=== PATIENT | male | born 1980 | race Caucasian/White ===

== ENCOUNTER 2024-03-27 21:18 | Emergency (ER) | payer OTHER, SELFPAY ==
[2024-03-27 21:20] VITALS: BP 164/114
[2024-03-27 22:15] VITALS: BP 145/107
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
[2024-03-28 04:04] VITALS: BP 142/98
== END 2024-03-28 04:09 | disposition home or self-care (01) ==
LOC: EMR 21:18
PROVIDERS: EMERGENCY PHYSICIAN Emergency Medicine
DX: Z13.30 Encounter for screening examination for mental health and behavioral disorders, unspecified (principal); Z59.02 Unsheltered homelessness; K21.9 Gastro-esophageal reflux disease without esophagitis; I10 Essential (primary) hypertension; F41.9 Anxiety disorder, unspecified; F17.200 Nicotine dependence, unspecified, uncomplicated; Y92.481 Parking lot as the place of occurrence of the external cause
CPT/HCPCS: 99285

== ENCOUNTER 2024-05-08 15:20 | Inpatient (IN) | payer OTHER, SELFPAY ==
[2024-05-08] VITALS (7 sets, daily range): BP systolic 104–144; BP diastolic 70–87; BMI 27.2
[2024-05-08 12:37] LABS: Glucose - Point of Care 297 mg/dl (70-99)
--- NOTE | 2024-05-08 12:59 | ED.GENMED ---
History of Present Illness
General
Chief Complaint: Cold/Flu/URI Symptoms
Source: patient
Exam Limitations: none
Time Seen by Provider: 05/08/24 12:57
Nursing documentation reviewed up to this point in time: agreed with
History of Present Illness
History of Present Illness:
43-year-old male presents emergency department due to coughing up dark-colored sputum, sick with cough and congestion for the past week, and diaphoretic in triage. He also reports that he has had a rash that this began yesterday. He has not been
taking any of his medications as he is unable to afford them. He is on insulin.
Past History
Past History
ED Past Medical History: GERD, HTN (untreated ), Psychiatric (anxiety/depression) and Other (pancreatitis)
ED Past Surgical History: Orthopedic
Social History
Tobacco: Smoker
Alcohol: Occasional
Drug: Former user
Personal:
Living: with family
Employment: Employed
Family History
Family History: Other (nc)
Review of Systems
Review of Systems
Allergies reviewed?: Yes
All Other Systems: Not applicable
Constitutional: Reports fever and chills
EENT: Reports no symptoms
Respiratory: Reports cough
Cardiac: Reports no symptoms
ABD/GI: Reports no symptoms
: Reports no symptoms
Musculoskeletal: Reports no symptoms
Skin: Reports no symptoms
Neurological: Reports no symptoms
Endocrine: Reports no symptoms
Hematologic/Lymphatic: Reports no symptoms
Psychiatric: Reports no symptoms
Phy Exam
Physical Exam
Physical Exam:
Physical Exam
General: Afebrile, diaphoretic
Neck: supple. no meningeal signs. normal posterior pharynx
Heart: s1/s2 tachycardia, no murmur. equal radial
pulses.
HEENT: Pupils equal round reactive to light, EOMI
Lungs: no acute respiratory distress. Rhonchi at bases bilaterally
Abdomen: normal bowel sounds. not tender. no CVAT
Neuro: alert and oriented. no focal neurological deficits cranial nerves II through XII intact
Skin: Macular rash on upper body, multiple sores on right arm
Psychiatric: well kept. interactive and cooperative
Extremities: no edema. no calf tenderness. negative homans. good distal pulses
Course
Orders/Labs/Results
Orders:
Orders
05/08/24 Lunch
2000 calorie (17 carb) Diabetic
At Your Request: Full Participation
05/08/24 12:59
IV Insert/Care/Rem.- Treatment PRN
0.9% Sodium Chloride 1000 ml [Nss] 1,000 ml IV BOLUS
05/08/24 13:03
B-Hydroxybutyrate Urgent
COVID-19 Antigen Urgent
Source: Nasal Swab
Complete Blood Count/With Diff Urgent
Comprehensive Metabolic Panel Urgent
Lactic Acid Q4H
Comment: CANCEL 2nd LACTIC ACID IF 1st LACTIC ACID IS LESS THAN 2
Influenza A+B Rapid Molecular Urgent
SATISH Source: Nasal Swab
Specimen Description:
05/08/24 13:17
CR Chest Portable - 1 View Urgent
Comment:
Reason For Exam: productive cough, b'l rhonchi, fever
Reason Study Needs to be Portable: Unable to Transport
05/08/24 13:[address] Non Medication Order As Directed
Physician Order: oropharyngeal swab, urine, for Rubeola testing
Above order entered?: Yes
05/08/24 13:52
Add On - Microbiology Urgent
Tests Added?: viral respiratory panel-requested by RASHMI
05/08/24 14:08
0.9% Sodium Chloride 1000 ml [Nss] 1,000 ml IV BOLUS
05/08/24 14:15
Respiratory Viral Panel-PCR Urgent
SATISH Source: CLINICAL TECHNICIAN
Specimen Description:
05/08/24 14:18
Rubeola Virus IgM (Measles) [S] Urgent
05/08/24 14:39
Azithromycin 500 mg/250 ml [Zithromax Infusion] 500 mg in 250 ml IV NOW
CefTRIAXone [Rocephin] 2,000 mg IV NOW STA
05/08/24 14:42
INFECTIOUS DISEASE CONSULT Routine
Consulting Provider: Steffen Rosado
Was physician already notified: Yes
05/08/24 15:05
Admit/Transfer Patient As Directed
Co-Sign Provider:
Level of Care: Inpatient admission
Assign to:: Telemetry
Physician / Group: Tanmay/hospitalist
Diagnosis: sepsis
Reason for Telemetry: Arrhythmia
Date to Stop Telemetry: 05/11/24
Time to Stop Telemetry: 11:00
Reason for Hospitalization: sepsis
Expected length of stay greater than two midnights?: Yes
ELOS- Estimated Length of Stay in days: 3
I certify the patient meets the requirements for IP care: Yes
PRN Pain Medication Management As Directed
May give lesser potent ordered pain med per pt: Yes
preference::
Protocol:: Medication orders for pain may be administered in a
manner that supports deferring to patient preference
when the pt is:
- Requesting an ordered lesser potent pain medication.
Least to most potent pain medications are defined
as: acetaminophen < NSAID < tramadol < opioids
(morphine, oxycodone, hydromorphone).
- Requesting a lesser dose of the same medication IF
ORDERED.
- Requesting a less intrusive route of administration
if both routes are prescribed by the provider (PO <
IV).
05/08/24 15:09
Code Status As Directed
Resuscitation Status: Full Code
05/08/24 15:10
Vancomycin [Vancocin] 2,000 mg 0.9% Sodium Chloride 500 ml [Nss] 500 ml IV NOW
05/08/24 15:42
HIV 4th Generation [HIV Combo] Routine
Procalcitonin Urgent
PCT Algorithmm Indication: Respiratory
Urinalysis Reflex To Culture Urgent
Date Specimen was Collected: 05/08/24
Time Specimen was Collected: 13:36
05/08/24 16:34
Blood Culture Q30M
SATISH Source: Blood/Venous
Specimen Description:
Comment: IF NOT OBTAINED IN ED
0.9% Sodium Chloride 1000 ml [Nss] 1,000 ml IV 100 mls/hr
Dextrose 50%-Water [Dextrose 50% Syringe] 12.5 grams IV [id number] PRN
Glucagon [GlucaGen] 1 mg IM PRN PRN
Insulin Aspart Corrective Low [Novolog Flexpen-Low Resistance] See Protocol SC AC
Insulin Aspart Pen [Novolog Flexpen] 5 units SC AC
Nicotine [Nicoderm Transdermal] 14 mg TRANSDERM DAILY
Ondansetron Injectable [Zofran] 4 mg IV Q6HPRN PRN
05/08/24 16:34
WOUND/OSTOMY CONSULT Routine
Reason for Consult: skin rash
Activity As Directed
Activity Level: As Tolerated
Bedside Glucose Monitoring As Directed
Frequency: AC&HS
Additional Instructions:: Change to q6h if pt on TPN, tube feeding or not eating
Intake/ Output As Directed
Frequency: Per unit guidelines
Vital Signs As Directed
Frequency: Per unit guidelines
DX Deep Vein Thrombosis Video Routine
05/08/24 17:00
Lactic Acid Q4H
Comment: CANCEL 2nd LACTIC ACID IF 1st LACTIC ACID IS LESS THAN 2
05/08/24 17:04
Blood Culture Q30M
SATISH Source: Blood/Venous
Specimen Description:
Comment: IF NOT OBTAINED IN ED
05/08/24 17:39
Urinalysis Reflex To Culture Urgent
Date Specimen was Collected: 05/08/24
Time Specimen was Collected: 17:24
Urine Drug Abuse Screen Routine
Date Specimen was Collected: 05/08/24
Time Specimen was Collected: 17:24
MRSA Screen Routine
SATISH Source: Nose
Specimen Description:
05/08/24 18:00
Enoxaparin Sodium [Lovenox] 40 mg SC QPM
05/08/24 20:00
CefTRIAXone [Rocephin] 1,000 mg IV Q24H
05/08/24 22:00
Insulin Glargine Lantus [Lantus] 10 units Subcutaneous Insulin Syringe [Syringe-Insulin] 0 unit SC HS
05/09/24 06:00
Basic Metabolic Panel IN AM
Complete Blood Count/With Diff IN AM
Glycohemoglobin (HgbA1c) IN AM
Lactic Acid IN AM
Magnesium IN AM
05/09/24 16:00
Azithromycin 500 mg/250 ml [Zithromax Infusion] 500 mg in 250 ml IV Q24H
05/10/24 06:00
Basic Metabolic Panel IN AM
Complete Blood Count/With Diff IN AM
Lactic Acid IN AM
05/11/24 11:00
DC Protocol for Telemetry ONCE
Abnormal Lab Results
05/08/24 05/08/24
12:36 13:03
WBC 18.2 H 10^3/uL
(4.8-10.8)
Abs Immat Gran (auto) 0.2 H 10^3/uL
(0-0.05)
Absolute Neuts (auto) 14.5 H 10^3/uL
(1.4-6.5)
Absolute Monos (auto) 1.4 H 10^3/uL
(0.1-0.6)
Immature Gran % 0.9 H %
(0-0.5)
Neutrophils % 79.4 H %
(42.2-75.2)
Lymphocytes % 11.3 L %
(20.5-51.1)
Sodium 131 L mmol/L
(135-145)
Chloride 84 L mmol/L
(98-107)
Glucose 373 H mg/dl
(70-99)
Lactic Acid 2.9 H mmol/L
(0.7-2.0)
Alkaline Phosphatase 138 H U/L
(38-126)
B-Hydroxybutyrate 4.43 H mmol/L
(0.02-0.27)
POC Glucose 297 H mg/dl
(70-99)
05/08/24 13:03
05/08/24 13:03
Vital Signs
Initial and Last Documented VS:
Initial Vital Signs
Temp Pulse Resp BP Pulse Ox
98.2 F 126 18 104/70 98
05/08/24 12:31 05/08/24 12:31 05/08/24 12:31 05/08/24 12:31 05/08/24 12:31
Last Documented Vital Signs
Temp Pulse Resp BP Pulse Ox
98.4 F 128 16 142/84 96
05/08/24 18:58 05/08/24 18:58 05/08/24 18:58 05/08/24 18:58 05/08/24 18:58
MDM/Problems Addressed
Differential Diagnosis Includes:
Measles, pneumonia, DKA
MDM/Problems Addressed:
43-year-old male with bilateral pneumonia, some concern for measles, though likely other infectious cause. Department health contacted, infection control contacted. IV fluids, Rocephin, azithromycin and given. Patient has multiple wounds that are
concerning for MRSA.
Chronic conditions affecting care: DM and HTN
Acute Exacerbation and/or Progression of Chronic Illness: DM and HTN
*Radiology
Radiology exam reviewed: preliminary read by ED provider (Chest x-ray bilateral patchy infiltrates)
*Pulse Oximetry
Patient hypoxic: no
*Publication Distributor Interpretation
Rate: tachycardiac
Interpretation: abnormal
Heart Rate: 128
Rhythm: sinus tachycardia
*Critical Care Note
Total Time (30-74mins, 75-104mins- exclusive of procedures): 32
comment:
Critical care statement: A total of 30 minutes of critical care time was provided for this patient. This includes management of unstable vital signs, evaluation of the patient at bedside, reviewing the patient's pertinent medical records, discussion
with consultants, review of old EKGs and review of pertinent medical records. This time with separate from time utilized to perform the aforementioned documented procedures
Data Reviewed
Review of Other/Old Records Reveals: Labs (Prior WBC 6.8 12/06/2021)
Patient Management
Social determinants of health affecting care: Living situation, Substance abuse, Financial situation and Poor outpatient follow-up
Discussion with other providers: Hospitalist and House Principal (Infection control, and department of health Dr. Tovar)
Escalation/DeEscalation of care consider admission/obs:
Admit indicated
ED Attending Note
-
Portions of this chart may have been created with voice recognition software.� Occasional wrong word or��sound alike� substitutions may have occurred due to the inherent limitations of voice recognition software.
Discharge Plan
Departure
Patient Disposition: Admit
Date of Disposition: 05/08/24
Time of Disposition: 15:05
Admit to: Telemetry
Presentation/result/management discussed w/ accepting MD/DO: Hospitalist
Patient with high blood pressure during this ER visit?: No
Condition: Fair
Discharge Problem:
Pneumonia, Acute hyperglycemia
Interventions
Interventions:
*Risk Screen - Suicide Last Done: 05/08/24 12:32
*General Assessment Last Done: 05/08/24 12:32
*Neglect/Abuse Screening Last Done: 05/08/24 12:32
*ED- Fall Risk Assessment Last Done: 05/08/24 16:27
*ED COVID-19 Vaccine History Last Done: 05/08/24 16:27
*Nursing Disposition Last Done: 05/08/24 16:27
ED- Pulmonary Assessment Last Done: 05/08/24 14:42
Discharge Date and Time
Discharge Date/Time: 05/08/24 16:28
[2024-05-08 13:30] LABS: % Basophils 0.5 % (0-2); % Eosinophils 0.1 % (0-6); % Immature Granulocytes 0.9 % (0-0.5); % Lymphocytes 11.3 % (20.5-51.1); % Monocytes 7.8 % (1.7-9.3); % Neutrophils 79.4 % (42.2-75.2); Absolute Basophils 0.1 10^3/uL (0-0.2); Absolute Immature Granulocytes 0.2 10^3/uL (0-0.05); Absolute Lymphocytes 2.1 10^3/uL (1.2-3.4); Absolute Monocytes 1.4 10^3/uL (0.1-0.6); Absolute Neutrophils 14.5 10^3/uL (1.4-6.5); Hematocrit 41.4 % (39.0-52.0); Hemoglobin 14.7 g/dL (13.0-18.0); Mean Corp Hgb Conc. 35.5 g/dL (33.0-37.0); Mean Corpuscular Hgb 30.5 pg (27.0-31.0); Mean Corpuscular Volume 85.9 fL (80.0-94.0); Mean Platelet Volume 9.4 fL (7.4-10.4); Nucleated Red Blood Cells % 0 % (-); Platelet Count 243 10^3/uL (130-400); Red Blood Cell Count 4.82 10^6/uL (4.70-6.10); Red Cell Dist. Width 11.9 % (11.5-14.5); White Blood Cell Count 18.2 10^3/uL (4.8-10.8)
[2024-05-08 13:44] LABS: ALT (SGPT) < 10 U/L (0-50); AST (SGOT) 18 U/L (17-59); Albumin 3.7 g/dl (3.5-5.0); Alkaline Phosphatase 138 U/L (38-126); Blood Urea Nitrogen 12 mg/dl (9-20); Calcium 9.3 mg/dl (8.4-10.2); Carbon Dioxide 30 mmol/L (22-30); Chloride 84 mmol/L (98-107); Glucose 373 mg/dl (70-99); Potassium 3.7 mmol/L (3.5-5.1); Sodium 131 mmol/L (135-145); Total Protein 6.7 g/dl (6.3-8.2); eGFR > 60.00
[2024-05-08 13:45] LABS: Lactic Acid 2.9 mmol/L (0.7-2.0)
[2024-05-08 13:51] LABS: B-Hydroxybutyrate 4.43 mmol/L (0.02-0.27); COVID-19 Antigen Negative (Negative)
[2024-05-08] MEDS: NSS 1000 IV ×3 (14:06→16:56)
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
--- NOTE | 2024-05-08 15:03 | PHANOTE ---
Addendum entered by Andrei Flaherty 05/08/24 18:49:
Interviewed patient over phone, he was able to confirm the few medications that he had been taking.
Addendum entered by Jayda Bernard 05/08/24 15:07:
no records of clonidine 0.2 tid or olanzapine being filled. no [facility] records for lorazepam
Original Note:
med rec note- patient non complant with medication, ecw from 09/14/23 no meds listed expect NovoLog 10 ac and Semglee yfgn 24 daily, [facility] records 08/31/23 buprenorphine/naloxone film 8/2mg daily #30 nothing newer. added new medication from 04/14/24
to med rec list
[2024-05-08] MEDS: ZITHROMAX INFUSION 250 IV (15:34)
[2024-05-08 15:52] LABS: Urine Albumin Negative (Neg - Trace); Urine Bilirubin Negative (Negative); Urine Character Clear (Clear); Urine Glucose 4+ (Negative); Urine Ketone 3+ (Negative); Urine Leukocyte Negative (Negative); Urine Nitrite Negative (Negative); Urine Occult Blood Negative (Negative); Urine Urobilinogen Negative (Neg - 1+)
[2024-05-08 15:56] LABS: Urine Color Straw
[2024-05-08 16:21] LABS: Procalcitonin 0.18 ng/ml (0.0-0.25)
--- NOTE | 2024-05-08 16:30 | TRANSFER ---
Received patient from ER via stretcher. Patient ambulated self to bed. Admission done over the phone. patient AAOx3. VSS. orders acknowledged. Airborne [id number] applied. Patient comfortably resting in bed
[2024-05-08] MEDS: VANCOCIN 540 MG IV (16:56)
[2024-05-08] MEDS: NICODERM TRANSDERMAL 14 MG TRANSDERM (16:58)
[2024-05-08 17:26] LABS: Glucose - Point of Care 246 mg/dl (70-99)
[2024-05-08] MEDS: NOVOLOG FLEXPEN 5 UNITS SC (17:26)
[2024-05-08] MEDS: LOVENOX 40 MG SC (17:26)
[2024-05-08] MEDS: NOVOLOG FLEXPEN-LOW RESISTANCE 2 UNITS SC (17:27)
--- NOTE | 2024-05-08 17:54 | CON.ID ---
Consultation
-
Date/Time Consultation Requested: 05/08/2024 1442
Date/Time Consultation Performed: 05/08/2024 1700
Requesting Provider: Dr. Donato
Performing Provider: Dr. Rosado
Reason for Consultation: Fever, cough, rash
Chief Complaint / Past History
History of Present Illness
Cesar Chance is a 43-year-old man being evaluated at the request of Dr. Donato in regards to fever, cough and rash. History is obtained from chart review, along with patient interview. Additional history was obtained from the patient's mother who was
outside the room.
The patient has a significant past medical history of diabetes, along with reported alcohol use. The patient's mother notes that he has been somewhat noncompliant with his medical treatments, and has been off of insulin. The patient reports that
he began with chills and upper respiratory tract symptomatology approximately 1 week ago. He complained of cough, nasal congestion, along with sore throat. He notes that he was feeling better approximately 3 days ago, but yesterday he began to
feel much worse with sweats, productive sputum of dark zhang and green sputum. He admitted to chills. Additionally, he began with a rash yesterday which was noted on his trunk. According to his mom he felt so ill that he called her to bring him
into the hospital for further evaluation.
Here, he was noted to have a rash and ER workup revealed a marked leukocytosis. He is currently in airborne precautions for possible measles. In regards to this his mother reports that he received all of his appropriate child vaccinations.
He has no sick contacts. 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 He has had no recent travel outside of the area.
Past History
Additional Past Medical History:
Diabetes mellitus
GERD
HTN
Anxiety/depression
Solitary kidney
Additional Past Surgical History:
Left knee surgery
Allergy History:
No Known Allergies Allergy (Verified 03/27/24 21:19)
Medications Reviewed: Yes
Current Antibiotics:
Ceftriaxone
Azithromycin
Social History
Tobacco: Smoker
Alcohol: Occasional
Drug: None
Employment: Employed
Family History
Family History: Not Pertinent
Review of Systems
Vital Signs
Temp Pulse Resp BP Pulse Ox
98.7 F 109 18 116/77 97
05/08/24 16:37 05/08/24 16:37 05/08/24 16:37 05/08/24 16:37 05/08/24 16:37
Physical Exam
Physical Exam
Constitutional: Comfortable, Acutely Ill and Non-toxic
Eyes: Pupils Equal, Pupils Round, No Conjunctival Hemorrhage and Sclera Anicteric
Oral: No Thrush, No Ulcers and Other (No noted [place] spots)
Cardiovascular: Regular Rate and S1/S2; Negative S3/S4
Pulmonary: Coarse and Non Labored; Negative Wheezes or Rales
Gastrointestinal: Soft, Non Tender, Non Distended, Normal Bowel Sounds, No Rebound and No Guarding
Extremities: Negative Edema, Cyanosis or Erythema
Skin: Warm, Dry and Rash (Faint erythematous rash noted on the upper trunk and back. Appears more diffuse than discrete and macular.)
Lab / Diagnostic Study Results
05/08/24 13:03
05/08/24 13:03
Abs Immat Gran (auto) 0.2 10^3/uL (0-0.05) H 05/08/24 13:03
Absolute Neuts (auto) 14.5 10^3/uL (1.4-6.5) H 05/08/24 13:03
Absolute Lymphs (auto) 2.1 10^3/uL (1.2-3.4) 05/08/24 13:03
Absolute Monos (auto) 1.4 10^3/uL (0.1-0.6) H 05/08/24 13:03
Absolute Basos (auto) 0.1 10^3/uL (0-0.2) 05/08/24 13:03
Immature Gran % 0.9 % (0-0.5) H 05/08/24 13:03
Neutrophils % 79.4 % (42.2-75.2) H 05/08/24 13:03
Lymphocytes % 11.3 % (20.5-51.1) L 05/08/24 13:03
Monocytes % 7.8 % (1.7-9.3) 05/08/24 13:03
Eosinophils % 0.1 % (0-6) 05/08/24 13:03
Basophils % 0.5 % (0-2) 05/08/24 13:03
Lactic Acid 2.9 mmol/L (0.7-2.0) H 05/08/24 13:03
Procalcitonin 0.18 ng/ml (0.0-0.25) 05/08/24 15:42
Microbiology Results
Micro:
05/08/24 17:39 MRSA Screen - Pending
Nose
05/08/24 14:15 Influenza Type A (PCR) - Final
Nasalpharynx Not Detected
Influenza Type A (H1) (PCR) - Final
Not Detected
Influenza Type A (H3) (PCR) - Final
Not Detected
Influenza Type B (PCR) - Final
Not Detected
Resp Syncytial Virus Type A (PCR) - Final
Not Detected
Resp Syncytial Virus Type B (PCR) - Final
Not Detected
Adenovirus DNA (PCR) - Final
Not Detected
Human Metapneumovirus (PCR) - Final
Not Detected
Parainfluenza Virus Type 1 (PCR) - Final
Not Detected
Parainfluenza Virus Type 2 (PCR) - Final
Not Detected
Parainfluenza Virus Type 3 (PCR) - Final
Not Detected
Parainfluenza Virus Type 4 - Final
Not Detected
Rhinovirus (PCR) - Final
Not Detected
05/08/24 13:03 Influenza Types A & B (THEE) - Final
Nasal Swab Negative for Influenza A & B, NAAT
Negative results must be combined with clinical observations
and patient history.
Nucleic Acid Amplification test (NAAT)performed on the
[employer] platform.
Imaging:
05/08/2024 CXR (portable): Questionable subtle patchy infiltrate versus artifactual regions of subtle increased attenuation. No focal dense consolidation. No pneumothorax or pleural effusion. Please see full dictation for additional detail.
Assessment / Plan
Fever
Leukocytosis
Rash
Upper respiratory tract infection (bronchitis +/- early PNA)
Diabetes
GERD
Hx HTN
Anxiety/depression
Recommendations:
Given rash, the diagnosis of measles has been entertained, although given history, the diagnosis would be somewhat less likely.
Viral respiratory panel is negative. Will order sputum culture. [place]ube[place] PCR will be sent in AM to the [facility].
Check Legionella and pneumococcal urinary antigen.
Continue with ceftriaxone and Azithromycin for the present.
Monitor white count and temperature curve.
HIV antibody has been ordered; will await results.
Tight glucose control.
Monitor white count and temperature curve.
Further recommendations as additional data is returned.
[2024-05-08] MEDS: CITROMA 300 ML PO (17:56)
[2024-05-08 18:06] LABS: Urine Albumin Negative (Neg - Trace); Urine Bilirubin Negative (Negative); Urine Character Clear (Clear); Urine Color Yellow; Urine Glucose 4+ (Negative); Urine Ketone 3+ (Negative); Urine Leukocyte Negative (Negative); Urine Nitrite Negative (Negative); Urine Occult Blood Negative (Negative); Urine Specific Gravity 1.015 (<1.030); Urine Urobilinogen Negative (Neg - 1+)
[2024-05-08 18:36] LABS: Amphetamines Positive (Negative); Barbiturates Negative (Negative); Benzodiazepines Negative (Negative); Buprenorphine Negative (Negative); Cocaine Negative (Negative); Marijuana Positive (Negative); Methadone Negative (Negative); Methamphetamines Positive (Negative); Opiates Negative (Negative); Phencyclidine Negative (Negative); Tricyclic Antidepressants Negative (Negative)
[2024-05-08 18:59] LABS: Fentanyl, Urine Positive (Negative)
[2024-05-08] MEDS: MORPHINE SULFATE 2 MG IV (19:46)
[2024-05-08] MEDS: SENOKOT-S 1 TABLET PO (19:46)
[2024-05-08] MEDS: ROCEPHIN 1000 MG IV (20:47)
[2024-05-08] MEDS: STERILE WATER FOR INJECTION 10 ML IV (20:48)
[2024-05-08 21:57] LABS: Glucose - Point of Care 264 mg/dl (70-99)
[2024-05-08] MEDS: LANTUS 0.1 UNITS SC (22:24)
[2024-05-08] MEDS: DESYREL 100 MG PO (22:24)
[2024-05-09 03:00] VITALS: BP 128/83
[2024-05-09 06:00] VITALS: BMI 26.4
[2024-05-09 06:50] LABS: % Basophils 0.5 % (0-2); % Eosinophils 0.7 % (0-6); % Lymphocytes 19.1 % (20.5-51.1); % Monocytes 10.6 % (1.7-9.3); % Neutrophils 68.1 % (42.2-75.2); Absolute Basophils 0.1 10^3/uL (0-0.2); Absolute Eosinophils 0.1 10^3/uL (0-0.7); Absolute Immature Granulocytes 0.1 10^3/uL (0-0.05); Absolute Lymphocytes 1.8 10^3/uL (1.2-3.4); Absolute Neutrophils 6.5 10^3/uL (1.4-6.5); Hematocrit 41.8 % (39.0-52.0); Hemoglobin 14.7 g/dL (13.0-18.0); Mean Corp Hgb Conc. 35.2 g/dL (33.0-37.0); Mean Corpuscular Hgb 30.6 pg (27.0-31.0); Mean Corpuscular Volume 86.9 fL (80.0-94.0); Mean Platelet Volume 8.7 fL (7.4-10.4); Nucleated Red Blood Cells % 0 % (-); Platelet Count 220 10^3/uL (130-400); Red Blood Cell Count 4.81 10^6/uL (4.70-6.10); Red Cell Dist. Width 12.1 % (11.5-14.5); White Blood Cell Count 9.6 10^3/uL (4.8-10.8)
[2024-05-09 07:05] VITALS: BP 143/104
[2024-05-09 07:15] LABS: Blood Urea Nitrogen 7 mg/dl (9-20); Calcium 9.3 mg/dl (8.4-10.2); Carbon Dioxide 26 mmol/L (22-30); Chloride 94 mmol/L (98-107); Estimated Creatinine Clearance > 125 ml/min; Glucose 238 mg/dl (70-99); Magnesium 1.7 mg/dl (1.6-2.3); Sodium 137 mmol/L (135-145); eGFR > 60.00
[2024-05-09] MEDS: SENOKOT-S 1 TABLET PO ×2 (08:09→19:50)
[2024-05-09] MEDS: NICODERM TRANSDERMAL 14 MG TRANSDERM (08:09)
[2024-05-09 08:10] LABS: Glucose - Point of Care 221 mg/dl (70-99)
[2024-05-09] MEDS: MIRALAX PO (08:13)
[2024-05-09] MEDS: NOVOLOG FLEXPEN-MODERATE RESISTANCE 3 UNITS SC (08:14)
[2024-05-09] MEDS: NOVOLOG FLEXPEN 5 UNITS SC ×4 (08:14→22:21)
[2024-05-09] MEDS: NSS IV (08:17)
[2024-05-09 09:17] LABS: Glycohemoglobin (HgbA1c) 10.4 % (4.0-5.6)
--- NOTE | 2024-05-09 09:32 | W.PN.HOSP.TC ---
Addendum entered and electronically signed by Kenyetta Donato MD 05/09/24 10:04:
Increase Lantus to 15 units HS
Original Note:
Today's Communication/Plan
-
see A/P
Assessment / Plan
Assessment / Plan
HPI: 43-year-old male PMH GERD, HTN (untreated), anxiety/depression, IDDM; p/w productive coughing (dark-colored sputum), congestion, oral ulcers, diaphoresis.
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
Of note, he is not taking any medication (including insulin) as he is not able to afford them.
A/P:
# sepsis POA, unclear cause
# Upper chest skin rash, oral ulcers, nasal congestion
COVID/flu negative
procalcitonin 0.18,
CXR: Questionable subtle patchy infiltrates versus artifact. No focal dense consolidation. No pneumothorax or pleural effusion. No evidence of congestive heart failure.
check MRSA screen
Follow blood cultures
Urine Legionella/Strep Ag negative
Measles IgM sent from ED, follow-up
check HIV for completeness sake
Cont empiric ceftriaxone and azithromycin
Observe off additional IVF
ID on board
Wound care consulted
of note, UDS positive for Fentanyl, amphetamine, methamphetamine, Marijuana
# Mild lactic acidosis present on admission, resolved
# Hyperglycemia
# Insulin-dependent diabetes
Follow A1c
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
Cover with insulin sliding scale
Carb controlled diet
# Constipation
started Senokot-S BID and Miralax daily standing doses
# GERD
# HTN
Start Metoprolol 12.5 BID (in the [facility] 4 dollar plan), adjust dose as needed
# anxiety/depression
# Medication noncompliance due to unable to afford medications per pt
informed about [facility] $4 plan and good Rx
# Nicotine dependence/cigarette smoking
Nicotine patch provided
DVT ppx: Lovenox SQ
FC
DW RN
total time spent 51 min
Anticipated Discharge: 24 - 48 hours
Subjective/Interval History
-
Date of Service: May 09, 2024
Objective Data
-
Labs:
Laboratory Results
05/09/24
06:29
WBC 9.6
Hgb 14.7
Hct 41.8
Plt Count 220
Sodium 137
Potassium 4.0
Chloride 94 L
Carbon Dioxide 26
BUN 7 L
Creatinine 0.6 L
Glucose 238 H
Calcium 9.3
Vital Signs:
Vital Signs
Temp Pulse Resp BP Pulse Ox
36.8 C 107 19 143/104 97
05/09/24 07:05 05/09/24 07:05 05/09/24 07:05 05/09/24 07:05 05/09/24 07:05
I&O
05/08/24 05/09/24 05/10/24
06:59 06:59 06:59
Intake Total 1440 / 1440 900 / 900
Output Total 600 / 600
Balance 840 / 840 900 / 900
Review of Systems
-
All other systems: Reviewed and negative
Physical Exam
-
General: Well Developed, Well Nourished, No Apparent Distress, Comfortable and Conversant; Negative Respiratory Distress
HEENT: Normocephalic, Atraumatic, Nose Appears Normal and Ears Appear Normal; Negative Oxygen
Respiratory: Clear to Auscultation and Non Labored Respirations; Negative Accessory Resp Muscle Use
Cardiac: Regular Rhythm and S1/S2
GI: Soft, Nontender, Nondistended and Normal Bowel Sounds
Skin: Warm, Dry and Rash (see wound care note)
Neuro: Awake, Alert, Oriented and AO x 3
Psych: Calm and Intact Judgement/Insight
Data Reviewed
-
Labs: Labs Reviewed by me
[2024-05-09 10:24] VITALS: BMI 26.4
[2024-05-09 11:05] VITALS: BP 175/109
--- NOTE | 2024-05-09 11:06 | WOUNDNOTE ---
RIGHT 4th FINGER
[2024-05-09] MEDS: LOPRESSOR 12.5 MG PO ×2 (11:07→19:49)
--- NOTE | 2024-05-09 11:07 | WOUNDNOTE ---
[facility] RN NOTE: Reviewed chart and met with patient. Per chart review and TT with Dr. Donato patient has rash and multiple lesions that appear to be chronic. ID also following. No rash noted on chest or back at time of assessment. Patient as wearing
jeans and declined to remove them for skin assessment. Right hand with circular wound with scabbed/necrotic appearance. Patient states he has had wound for a 'few months' and said it started after he picked off some skin. No drainage or odor noted.
Picture also TT to ID. Right 4th finger with abrasion that patient said occurred due to brillo pad. Patient prefers to keep both wounds open to air and declined recommendations for wound dressings. Will sign off.
[2024-05-09 11:09] LABS: Glucose - Point of Care 354 mg/dl (70-99)
[2024-05-09] MEDS: NOVOLOG FLEXPEN-MODERATE RESISTANCE 9 UNITS SC ×2 (13:01→17:04)
[2024-05-09 15:05] VITALS: BP 155/103
[2024-05-09] MEDS: ZITHROMAX INFUSION 250 IV (15:42)
--- NOTE | 2024-05-09 15:53 | PTCARENOTE ---
Infection control cleared patient to come off of airborne precautions. Patients new isolation is now standard.
[2024-05-09 16:03] LABS: HIV Combo Negative (Negative)
[2024-05-09 16:55] LABS: Glucose - Point of Care 356 mg/dl (70-99)
[2024-05-09] MEDS: LOVENOX 40 MG SC (17:04)
--- NOTE | 2024-05-09 17:15 | CM ---
Attempted to speak with patient however he was not available. Called other listed contacts and there were no answers only voice mail. Will attempt again to see patient.
--- NOTE | 2024-05-09 18:02 | W.PN.ID1 ---
Date of Service
Date of Service: May 09, 2024
Today's Communication
Continue abx for today
Assessment / Plan
Fever
Leukocytosis
Rash
Upper respiratory tract infection (bronchitis +/- early PNA)
Diabetes
GERD
Hx HTN
Anxiety/depression
Recommendations:
Department of Health not impressed with clinical presentation. No testing for measles will be performed. Patient now out of isolation.
Viral respiratory panel is negative. Await sputum culture.
Legionella and pneumococcal urinary antigen negative.
Continue with ceftriaxone and Azithromycin for the present.
Monitor white count and temperature curve.
HIV antibody negative. Check Hep C ab
Tight glucose control.
Monitor white count and temperature curve.
Further recommendations as additional data is returned.
Chief Complaint
-: Fever and Other
Subjective / Review of Systems
Patient seen and examined. Reports feeling improved today. Some decrease in overall cough.
Review of Systems: No Fever
Vital Signs / Physical Exam
Vital Signs
Vital Signs
Temp Pulse Resp BP Pulse Ox
99.1 F 105 18 155/103 98
05/09/24 15:05 05/09/24 15:05 05/09/24 15:05 05/09/24 15:05 05/09/24 15:05
Physical Exam
Constitutional: No Acute Distress, Comfortable and Non-toxic
Eyes: Sclera Anicteric
Pulmonary: Non Labored; Negative Wheezes
Gastrointestinal: Soft, Non Distended and Normal Bowel Sounds
Neurological: Awake and Alert
Psychological: Calm
Objective Data
Lab Data
Lab Results
05/09/24 06:29
05/09/24 06:29
Estimated Creat Clear > 125 ml/min 05/09/24 06:29
Lactic Acid Cancelled 05/09/24 06:00
Total Bilirubin 1.0 mg/dl (0.2-1.3) 05/08/24 13:03
AST 18 U/L (17-59) 05/08/24 13:03
ALT < 10 U/L (0-50) 05/08/24 13:03
Alkaline Phosphatase 138 U/L (38-126) H 05/08/24 13:03
Most recent labs reviewed.
Micro Results:
05/09/24 06:19 Legionella Urinary Antigen - Final
Urine Negative for Legionella pneumophila Serogroup 1 antigen.
A negative result does not rule out the possiblity of
Legionella infection due to other serogroups or species of
Legionella. Clinical correlation is recommended.
Streptococcus pneumoniae Antigen (M - Final
Negative for Streptococcus pneumoniae antigen.
A negative result does not exclude infection with
Streptococcus pneumoniae. Clinical correlation is
recommended.
05/08/24 22:30 Blood Culture - Pending
Blood/Venous
05/08/24 21:18 Blood Culture - Pending
Blood/Venous
05/08/24 17:39 MRSA Screen - Pending
Nose
05/08/24 14:15 Influenza Type A (PCR) - Final
Nasalpharynx Not Detected
Influenza Type A (H1) (PCR) - Final
Not Detected
Influenza Type A (H3) (PCR) - Final
Not Detected
Influenza Type B (PCR) - Final
Not Detected
Resp Syncytial Virus Type A (PCR) - Final
Not Detected
Resp Syncytial Virus Type B (PCR) - Final
Not Detected
Adenovirus DNA (PCR) - Final
Not Detected
Human Metapneumovirus (PCR) - Final
Not Detected
Parainfluenza Virus Type 1 (PCR) - Final
Not Detected
Parainfluenza Virus Type 2 (PCR) - Final
Not Detected
Parainfluenza Virus Type 3 (PCR) - Final
Not Detected
Parainfluenza Virus Type 4 - Final
Not Detected
Rhinovirus (PCR) - Final
Not Detected
05/08/24 13:03 Influenza Types A & B (THEE) - Final
Nasal Swab Negative for Influenza A & B, NAAT
Negative results must be combined with clinical observations
and patient history.
Nucleic Acid Amplification test (NAAT)performed on the
[employer] platform.
Imaging:
05/08/2024 CXR (portable): Questionable subtle patchy infiltrate versus artifactual regions of subtle increased attenuation. No focal dense consolidation. No pneumothorax or pleural effusion. Please see full dictation for additional detail.
[2024-05-09 19:08] VITALS: BP 142/100
[2024-05-09] MEDS: ROCEPHIN 1000 MG IV (19:49)
[2024-05-09] MEDS: STERILE WATER FOR INJECTION 10 ML IV (19:49)
[2024-05-09] MEDS: MORPHINE SULFATE 1 MG IV (20:19)
[2024-05-09 21:21] LABS: Glucose - Point of Care 432 mg/dl (70-99)
[2024-05-09 22:00] LABS: Glucose 392 mg/dl (70-99)
[2024-05-09] MEDS: LANTUS 0.15 UNITS SC (22:08)
[2024-05-09] MEDS: DESYREL 100 MG PO (22:10)
[2024-05-09 22:55] VITALS: BP 131/91
[2024-05-10 00:02] LABS: Glucose - Point of Care 348 mg/dl (70-99)
[2024-05-10] MEDS: NOVOLOG FLEXPEN 5 UNITS SC ×3 (00:20→12:20)
[2024-05-10 02:58] LABS: Glucose - Point of Care 240 mg/dl (70-99)
[2024-05-10 03:00] VITALS: BP 127/85
[2024-05-10 06:43] LABS: % Eosinophils 1.8 % (0-6); % Immature Granulocytes 0.8 % (0-0.5); % Lymphocytes 23.3 % (20.5-51.1); % Monocytes 10.6 % (1.7-9.3); % Neutrophils 62.5 % (42.2-75.2); Absolute Basophils 0.1 10^3/uL (0-0.2); Absolute Eosinophils 0.1 10^3/uL (0-0.7); Absolute Immature Granulocytes 0.1 10^3/uL (0-0.05); Absolute Lymphocytes 1.7 10^3/uL (1.2-3.4); Absolute Monocytes 0.8 10^3/uL (0.1-0.6); Absolute Neutrophils 4.5 10^3/uL (1.4-6.5); Hematocrit 39.3 % (39.0-52.0); Hemoglobin 14.2 g/dL (13.0-18.0); Mean Corp Hgb Conc. 36.1 g/dL (33.0-37.0); Mean Corpuscular Hgb 30.8 pg (27.0-31.0); Mean Corpuscular Volume 85.2 fL (80.0-94.0); Mean Platelet Volume 8.9 fL (7.4-10.4); Nucleated Red Blood Cells % 0 % (-); Platelet Count 232 10^3/uL (130-400); Red Blood Cell Count 4.61 10^6/uL (4.70-6.10); Red Cell Dist. Width 11.9 % (11.5-14.5); White Blood Cell Count 7.2 10^3/uL (4.8-10.8)
--- NOTE | 2024-05-10 07:01 | W.PN.HOSP.TC ---
Today's Communication/Plan
-
Increased Insulin Regimen
Continue antibiotics
Continue to monitor on telemetry
Assessment / Plan
Assessment / Plan
Physical Exam
General: Well Developed, Well Nourished, No Apparent Distress, Comfortable and Conversant; Negative Respiratory Distress
HEENT: Normocephalic, Atraumatic, Nose Appears Normal and Ears Appear Normal; Negative Oxygen
Respiratory: Clear to Auscultation and Non Labored Respirations; Negative Accessory Resp Muscle Use
Cardiac: Regular Rhythm and S1/S2
GI: Soft, Nontender, Nondistended and Normal Bowel Sounds
Skin: Warm, Dry and Rash (see wound care note)
Neuro: Awake, Alert, Oriented and AO x 3
Psych: Calm and Intact Judgement/Insight
Assessment/Plan
HPI: 43-year-old male PMH GERD, HTN (untreated), anxiety/depression, IDDM; p/w productive coughing (dark-colored sputum), congestion, oral ulcers, diaphoresis.
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
Of note, he is not taking any medication (including insulin) as he is not able to afford them.
# sepsis POA, unclear cause
# Upper chest skin rash, oral ulcers, nasal congestion
# Upper respiratory tract infection (bronchitis +/- early PNA)
COVID/flu negative
procalcitonin 0.18,
CXR noted
Follow blood cultures
Urine Legionella/Strep Ag negative
Department of Health not impressed with clinical presentation. No testing for measles will be performed. Patient now out of isolation.
HIV antibody negative
Follow-up on Hep C ab
Was on empiric Cefdinir (previously was on ceftriaxone) and Azithromycin
Observe off additional IVF
ID on board, appreciate ID
Wound care consulted
of note, UDS positive for Fentanyl, amphetamine, methamphetamine, Marijuana
# Mild Asymptomatic Tachycardia - RESOLVED
-Possibly withdrawal from Fentanyl (UDS was positive for Fentanyl)
-Continue monitoring on telemetry
# Mild lactic acidosis present on admission, resolved
# Hyperglycemia
# Insulin-dependent diabetes
Follow A1c
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
Cover with insulin sliding scale
Carb controlled diet
# Constipation
started Senokot-S BID and Miralax daily standing doses
# GERD
# HTN
Continue Metoprolol 12.5 BID (in the [employer] 4 dollar plan), adjust dose as needed
# anxiety/depression
# Medication noncompliance due to unable to afford medications per pt
informed about [facility] $4 plan and good Rx
# Nicotine dependence/cigarette smoking
Nicotine patch provided
DVT ppx: Lovenox SQ
FC
DW RN
Anticipated Discharge: 24 - 48 hours
Subjective/Interval History
-
Date of Service: May 10, 2024
Patient was seen and examined. He denied any new symptoms or complaints.
Objective Data
-
Labs:
Laboratory Results
05/09/24 05/10/24
21:37 06:23
WBC 7.2
Hgb 14.2
Hct 39.3
Plt Count 232
Sodium Pending
Potassium Pending
Chloride Pending
Carbon Dioxide Pending
BUN Pending
Creatinine Pending
Glucose 392 H Pending
Calcium Pending
Vital Signs:
Vital Signs
Temp Pulse Resp BP Pulse Ox
97.8 F 100 14 127/85 96
05/10/24 03:00 05/10/24 03:00 05/10/24 03:00 05/10/24 03:00 05/10/24 03:00
I&O
05/09/24 05/10/24 05/11/24
06:59 06:59 06:59
Intake Total 1440 / 1440 2460 / 2460
Output Total 600 / 600 200 / 200
Balance 840 / 840 2260 / 2260
[2024-05-10 07:18] LABS: Blood Urea Nitrogen 7 mg/dl (9-20); Calcium 9.1 mg/dl (8.4-10.2); Carbon Dioxide 30 mmol/L (22-30); Chloride 98 mmol/L (98-107); Estimated Creatinine Clearance > 125 ml/min; Glucose 256 mg/dl (70-99); Potassium 3.3 mmol/L (3.5-5.1); Sodium 137 mmol/L (135-145); eGFR > 60.00
[2024-05-10 07:30] LABS: Glucose - Point of Care 279 mg/dl (70-99)
[2024-05-10 07:33] VITALS: BP 156/117
[2024-05-10] MEDS: NOVOLOG FLEXPEN-MODERATE RESISTANCE 5 UNITS SC (08:45)
[2024-05-10] MEDS: NICODERM TRANSDERMAL 14 MG TRANSDERM (08:45)
[2024-05-10] MEDS: LOPRESSOR 12.5 MG PO ×2 (08:45→20:36)
[2024-05-10] MEDS: KCL 40 MEQ PO (08:45)
[2024-05-10] MEDS: SENOKOT-S 1 TABLET PO ×2 (08:46→20:37)
[2024-05-10] MEDS: MIRALAX 17 GRAMS PO (08:46)
--- NOTE | 2024-05-10 10:04 | PTCARENOTE ---
Pt with K of 3.3 MD aware and was replaced with 40 meq of KCL. given and taken. Pt bs was 279 with HGa1c o> 10. Spent some time educating patient on Dm complications associated with vascular to legs hands, poor wound healing, heart and brain. Pt
verbalized and understanding and agreed he needs to be more compliant with his dm management
[2024-05-10 11:43] LABS: Glucose - Point of Care 425 mg/dl (70-99)
[2024-05-10 11:48] VITALS: BP 152/108
[2024-05-10 12:11] LABS: Glucose 361 mg/dl (70-99)
[2024-05-10] MEDS: NOVOLOG FLEXPEN-MODERATE RESISTANCE 9 UNITS SC ×2 (12:21→17:15)
[2024-05-10] MEDS: ZITHROMAX 500 MG PO (12:23)
--- NOTE | 2024-05-10 13:51 | PTCARENOTE ---
Md notified about Diastolic BPs and noon bs. change in insulin standing dose and evening lantus
[2024-05-10 15:17] VITALS: BP 130/95
--- NOTE | 2024-05-10 15:20 | CM ---
Met patient who is walking in [address] and in room. He is getting divorce from him . he live in loft of his mother's [address] community.
He works for [employer] in [place]. He has not seen Dr. shelton Osuna his PCP in a couple years.
Uses [facility].
He has [facility] [facility] at home.
PLAN: home no needs.
[2024-05-10 16:44] LABS: Glucose - Point of Care 379 mg/dl (70-99)
[2024-05-10] MEDS: LOVENOX 40 MG SC (17:16)
[2024-05-10] MEDS: NOVOLOG FLEXPEN 8 UNITS SC (17:16)
[2024-05-10 19:29] VITALS: BP 144/108
[2024-05-10] MEDS: MORPHINE SULFATE 1 MG IV (20:30)
[2024-05-10 21:40] LABS: Glucose - Point of Care 156 mg/dl (70-99)
[2024-05-10] MEDS: LANTUS 0.18 UNITS SC (22:01)
[2024-05-10] MEDS: OMNICEF 300 MG PO (22:01)
[2024-05-10] MEDS: DESYREL 100 MG PO (22:09)
[2024-05-10 23:16] VITALS: BP 152/107
[2024-05-11] VITALS (7 sets, daily range): BP systolic 135–161; BP diastolic 96–115; BMI 26.6
[2024-05-11 07:13] LABS: Hematocrit 39.8 % (39.0-52.0); Hemoglobin 14.1 g/dL (13.0-18.0); Mean Corp Hgb Conc. 35.4 g/dL (33.0-37.0); Mean Corpuscular Hgb 30.4 pg (27.0-31.0); Mean Corpuscular Volume 85.8 fL (80.0-94.0); Mean Platelet Volume 8.8 fL (7.4-10.4); Platelet Count 262 10^3/uL (130-400); Red Blood Cell Count 4.64 10^6/uL (4.70-6.10); Red Cell Dist. Width 11.9 % (11.5-14.5); White Blood Cell Count 6.2 10^3/uL (4.8-10.8)
[2024-05-11] MEDS: MIRALAX 17 GRAMS PO (08:18)
[2024-05-11] MEDS: NICODERM TRANSDERMAL 14 MG TRANSDERM (08:18)
[2024-05-11] MEDS: LOPRESSOR 12.5 MG PO ×2 (08:19→20:08)
[2024-05-11] MEDS: ZITHROMAX 500 MG PO (08:19)
[2024-05-11] MEDS: NOVOLOG FLEXPEN-MODERATE RESISTANCE 5 UNITS SC (08:20)
[2024-05-11] MEDS: NOVOLOG FLEXPEN 8 UNITS SC ×2 (08:20→12:01)
[2024-05-11] MEDS: SENOKOT-S 1 TABLET PO ×2 (08:20→20:07)
[2024-05-11] MEDS: OMNICEF 300 MG PO ×2 (08:20→20:07)
[2024-05-11 08:23] LABS: Blood Urea Nitrogen 6 mg/dl (9-20); Calcium 9.2 mg/dl (8.4-10.2); Carbon Dioxide 29 mmol/L (22-30); Chloride 97 mmol/L (98-107); Estimated Creatinine Clearance > 125 ml/min; Glucose 254 mg/dl (70-99); Magnesium 1.6 mg/dl (1.6-2.3); Potassium 3.9 mmol/L (3.5-5.1); Sodium 135 mmol/L (135-145); eGFR > 60.00
[2024-05-11 08:23] LABS: Glucose - Point of Care 269 mg/dl (70-99)
--- NOTE | 2024-05-11 09:10 | W.PN.HOSP.TC ---
Today's Communication/Plan
-
See plan
Assessment / Plan
Assessment / Plan
Physical Exam
General: Well Developed, Well Nourished, No Apparent Distress, Comfortable and Conversant
HEENT: Normocephalic, Atraumatic
Respiratory: Clear to Auscultation Bilaterally
Cardiac: Regular Rate and Rhythm and S1/S2
GI: Soft, Nontender, Nondistended and Normal Bowel Sounds
Skin: Warm, Dry and Rash (see wound care note)
Neuro: Awake, Alert, Oriented and AO x 3
Psych: Calm and Intact Judgement/Insight
Assessment/Plan
HPI: 43-year-old male PMH GERD, HTN (untreated), anxiety/depression, IDDM; p/w productive coughing (dark-colored sputum), congestion, oral ulcers, diaphoresis.
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
Of note, he has not been taking any medication (including insulin) as he is not able to afford them.
# Sepsis POA, unclear cause
# Upper chest skin rash, oral ulcers, nasal congestion
# Right forearm wounds
# Upper respiratory tract infection (bronchitis +/- early PNA)
COVID/flu negative
procalcitonin 0.18,
CXR noted
Blood cultures with no growth to date
Urine Legionella/Strep Ag negative
Department of Health not impressed with clinical presentation for Measles; no testing for measles will be performed; patient was previously taken out of isolation.
HIV antibody negative
Follow-up on Hep C ab
Continue empiric Cefdinir (previously was on ceftriaxone) and Azithromycin
ID on board, appreciate ID
Wound care consulted
#Asymptomatic Tachycardia
-EKG with sinus tachycardia
-Possibly withdrawal from Fentanyl (UDS was positive for Fentanyl)
-Wells Score for PE is low and patient does not have chest pain or SOB
-Check D-dimer
-Patient also reports weight loss (not sure whether b/c not eating much and recent stressors (see below) and heat intolerance at times
-Check TSH and Free T4
-Continue monitoring on telemetry
#Prolonged QTc
-Minimize/avoid QTc prolonging medications
#Mild lactic acidosis present on admission, resolved
#Hyperglycemia
#Insulin-dependent diabetes/Type 2 Diabetes Mellitus
Patient stated that he has not taken his home Metformin 1000 mg daily and also has not taken his 25 units AM Lantus+Sliding Scale Insulin for about 2 weeks prior to arrival
Beta hydroxybutyrate and urine ketones were elevated on arrival, but bicarb normal, and he is eating and drinking okay
A1c this hospitalization is 10.4%
Continue Lantus at bedtime (increased to 18 units; LUMBER STACKER 24 units AM), aspart (increased to 8 units; LUMBER STACKER SSI Insulin)
Cover with insulin sliding scale
Carb controlled diet
Will need Diabetes MANAGER PRODUCT DESIGN and education consult prior to discharge
#Constipation
Continue Senokot-S BID and Miralax daily standing doses
#GERD
-Prior to arrival, was not taking his usual Omeprazole for weeks
#Hypertension
Continue newly started Metoprolol 12.5 BID (in the [facility] 4 dollar plan), adjust dose as needed
Patient was previously on Lisinopril, then was told he did not need it anymore and therefore it was stopped
#Anxiety/Depression
-Patient reports stress prior to arrival
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
-He also reports not eating as much as usual
-Patient has seen psychiatry outpatient but has not seen in a long time, and given stressors, suspected drug use (including Fentanyl), and drinking alcohol again, will consult psychiatry, appreciate evaluation and recommendations
#History of Alcohol Use Disorder
-Patient stated that he was in an alcohol rehab program -- last session was about 2 months ago
-Recently, within the past ~1 month, he started drinking alcohol again, but not as much -- he reported last drink about 6 days ago
-Patient reports tremors from alcohol withdrawal in the past
-MSAS protocol
#Concern for Polysubstance Use
-UDS was positive for Fentanyl, but patient denies using Fentanyl
-UDS also positive for Marijuana, amphetamine, methamphetamine
#Tobacco Use
-Smokes 1 pack every ~1.5 weeks
-Nicotine patch
#ADHD
-Was taking Adderall, but for some reason could not take it anymore, so it was switched to Atomoxetine (but has not taken this for a couple of weeks per patient)
#Insomnia
-Takes Trazadone 100 mg HS prn (but appears he is taking it every night)
#Medication noncompliance due to unable to afford medications per pt
[facility]
Will need case management to look into this
#Right forearm and right hand wounds
-Continue wound care
DVT ppx: Lovenox SQ
FC
Disposition: Patient is high risk of re-hospitalization given social situation (getting divorce, job change) and issue with not taking medications including Insulin at home, came in with hyperglycemia, elevated beta hydroxybutyrate in setting of
less PO intake and increased stress in his life, suspected polysubstance abuse, drinking alcohol again. Needs Diabetes MANAGER PRODUCT DESIGN and psychiatry eval prior to discharge.
Anticipated Discharge: 24 - 48 hours
Subjective/Interval History
-
Date of Service: May 11, 2024
Patient was seen and examined. He denied any new symptoms or complaints.
Objective Data
-
Labs:
Laboratory Results
05/11/24
06:37
WBC 6.2
Hgb 14.1
Hct 39.8
Plt Count 262
Sodium 135
Potassium 3.9
Chloride 97 L
Carbon Dioxide 29
BUN 6 L
Creatinine 0.6 L
Glucose 254 H
Calcium 9.2
Vital Signs:
Vital Signs
Temp Pulse Resp BP Pulse Ox
98.6 F 117 18 160/115 96
05/11/24 07:00 05/11/24 07:00 05/11/24 07:00 05/11/24 07:00 05/11/24 07:00
I&O
05/10/24 05/11/24 05/12/24
06:59 06:59 06:59
Intake Total 2460 / 2460
Output Total 200 / 200 600 / 600
Balance 2260 / 2260 -600 / -600
[2024-05-11 11:42] LABS: Glucose - Point of Care 319 mg/dl (70-99)
[2024-05-11] MEDS: NOVOLOG FLEXPEN-MODERATE RESISTANCE 9 UNITS SC (12:00)
[2024-05-11 12:50] LABS: D-Dimer 0.67 ug/mlFEU (0.00-0.50)
[2024-05-11 13:24] LABS: TSH Reflex To Free T4 0.68 uIU/ml (0.47-4.68)
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
[2024-05-11 15:57] LABS: Rubeola Virus IgM (Measles) 0.48 AU (0.00-0.79)
[2024-05-11 16:00] LABS: Glucose - Point of Care 321 mg/dl (70-99)
[2024-05-11] MEDS: NOVOLOG FLEXPEN 10 UNITS SC (16:53)
[2024-05-11] MEDS: NOVOLOG FLEXPEN-MODERATE RESISTANCE 7 UNITS SC (16:54)
[2024-05-11] MEDS: LOVENOX 40 MG SC (16:57)
[2024-05-11 21:54] LABS: Glucose - Point of Care 165 mg/dl (70-99)
[2024-05-11] MEDS: LANTUS 0.22 UNITS SC (22:12)
[2024-05-12] MEDS: DESYREL 100 MG PO (00:38)
[2024-05-12] MEDS: MORPHINE SULFATE 1 MG IV (00:39)
[2024-05-12 03:31] VITALS: BP 134/80
[2024-05-12 06:00] VITALS: BMI 26.6
[2024-05-12 06:29] LABS: Hemoglobin 13.5 g/dL (13.0-18.0); Mean Corp Hgb Conc. 35.5 g/dL (33.0-37.0); Mean Corpuscular Hgb 30.5 pg (27.0-31.0); Mean Platelet Volume 8.7 fL (7.4-10.4); Platelet Count 277 10^3/uL (130-400); Red Blood Cell Count 4.42 10^6/uL (4.70-6.10); Red Cell Dist. Width 11.9 % (11.5-14.5); White Blood Cell Count 6.7 10^3/uL (4.8-10.8)
[2024-05-12 07:12] LABS: Blood Urea Nitrogen 6 mg/dl (9-20); Carbon Dioxide 31 mmol/L (22-30); Chloride 99 mmol/L (98-107); Estimated Creatinine Clearance > 125 ml/min; Glucose 311 mg/dl (70-99); Potassium 3.9 mmol/L (3.5-5.1); Sodium 134 mmol/L (135-145); eGFR > 60.00
[2024-05-12 07:26] VITALS: BP 131/97
--- NOTE | 2024-05-12 07:29 | W.PN.HOSP.TC ---
Today's Communication/Plan
-
Discharge today
Assessment / Plan
Assessment / Plan
Physical Exam
General: Well Developed, Well Nourished, No Apparent Distress, Comfortable and Conversant
HEENT: Normocephalic, Atraumatic
Respiratory: Clear to Auscultation Bilaterally
Cardiac: Regular Rate and Rhythm and S1/S2
GI: Soft, Nontender, Nondistended and Normal Bowel Sounds
Skin: Warm, Dry and Rash (see wound care note)
Neuro: Awake, Alert, Oriented and AO x 3
Psych: Calm and Intact Judgement/Insight
Assessment/Plan
HPI: 43-year-old male PMH GERD, HTN (untreated), anxiety/depression, IDDM; p/w productive coughing (dark-colored sputum), congestion, oral ulcers, diaphoresis.
He started with fever and chills more than a week ago [employer], then developed skin rash 1 day prior to admission.
Of note, he has not been taking any medication (including insulin) as he is not able to afford them.
# Sepsis POA, unclear cause
# Upper chest skin rash, oral ulcers, nasal congestion
# Right forearm wounds
# Upper respiratory tract infection (bronchitis +/- early PNA)
COVID/flu negative
procalcitonin 0.18,
CXR noted
Blood cultures with no growth to date
Urine Legionella/Strep Ag negative
Department of Health not impressed with clinical presentation for Measles; no testing for measles will be performed; patient was previously taken out of isolation.
HIV antibody negative
Follow-up on Hep C ab
Empiric Cefdinir (previously was on ceftriaxone) -- completed 5 days of Cephalosporin. Completed 5 days of Azithromycin.
Leukocytosis resolved and patient has been afebrile, his presenting symptoms resolved, and he received 5 days of antibiotics, so no need for antibiotics on discharge
ID on board, appreciate ID
Wound care consulted
#Asymptomatic Tachycardia
-EKG with sinus tachycardia, no findings of ACS, patient has not symptoms of ACS either
-Increased Metoprolol to 25 mg BID (from 12.5 mg BID) -- educated patient to not take the Metoprolol unless his heart rate is high, over 100 bpm, patient fully understood this and knows that he has to monitor blood pressure and heart rate daily and
the effects of low HR and low BP
-Possibly withdrawal from Fentanyl (UDS was positive for Fentanyl)
-Wells Score for PE is low and patient does not have chest pain or SOB
-D-dimer elevated --> checked CT Chest which is negative for PE
-Could be related with stress/anxiety
-Patient also reports weight loss (not sure whether b/c not eating much and recent stressors (see below) and heat intolerance at times - TSH 0.68 -- follow-up outpatient
-Echo
-Continue monitoring on telemetry
#Prolonged QTc
-Suspected from Azithromycin
-Minimize/avoid QTc prolonging medications
#Mild lactic acidosis present on admission, resolved
#Hyperglycemia
#Insulin-dependent diabetes/Type 2 Diabetes Mellitus
Patient stated that he has not taken his home Metformin 1000 mg daily and also has not taken his 25 units AM Lantus+Sliding Scale Insulin for about 2 weeks prior to arrival
Beta hydroxybutyrate and urine ketones were elevated on arrival, but bicarb normal, and he is eating and drinking okay
A1c this hospitalization is 10.4%
Diabetes HIV CTS SPECIALIST consulted, appreciate evaluation and recommendations
Carb controlled diet
#Constipation
Continue Senokot-S BID and Miralax daily standing doses
#GERD
-Prior to arrival, was not taking his usual Omeprazole for weeks
#Hypertension
Continue newly started Metoprolol (in the [facility] 4 dollar plan)
Patient was previously on Lisinopril, then was told he did not need it anymore and therefore it was stopped
#Anxiety/Depression
-Patient reports stress prior to arrival
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
-He also reports not eating as much as usual
-Patient has seen psychiatry outpatient but has not seen in a long time, and given stressors, suspected drug use (including Fentanyl), and drinking alcohol again, consulted psychiatry, appreciate evaluation and recommendations
-Prozac 20 mg QD started, caution while using Trazodone --> monitor for Serotonin Syndrome
#History of Alcohol Use Disorder
-Patient stated that he was in an alcohol rehab program -- last session was about 2 months ago
-Recently, within the past ~1 month, he started drinking alcohol again, but not as much -- he reported last drink about 6 days ago
-Patient reports tremors from alcohol withdrawal in the past
-MSAS scores are low
#Concern for Polysubstance Use
-UDS was positive for Fentanyl, but patient denies using Fentanyl
-UDS also positive for Marijuana, amphetamine, methamphetamine
-Stop stimulant medications
#Tobacco Use
-Smokes 1 pack every ~1.5 weeks
-Nicotine patch
#ADHD
-Was taking Adderall, but for some reason could not take it anymore, so it was switched to Atomoxetine (but has not taken this for a couple of weeks per patient)
#Insomnia
-Takes Trazadone 100 mg HS prn (but appears he is taking it every night)
#Medication noncompliance due to unable to afford medications per pt
-Patient clarified on 05/12/24 that he CAN afford the medications
#Right forearm and right hand wounds
-Continue wound care
DVT ppx: Lovenox SQ
FC
Disposition: Patient is high risk of re-hospitalization given social situation (getting divorce, job change) and issue with not taking medications including Insulin at home, came in with hyperglycemia, elevated beta hydroxybutyrate in setting of
less PO intake and increased stress in his life, suspected polysubstance abuse, drinking alcohol again. Patient stated on 05/12/24 that he will follow-up closely with his PCP after discharge.
More than 30 minutes spent in discharge including
Final examination of the patient
Summarizing hospital stay
Instructions for continuing care to all relevant caregivers
Preparation of discharge records, prescriptions, and referral forms
Total time spent (in minutes): 45
Anticipated Discharge: Today
Subjective/Interval History
-
Date of Service: May 12, 2024
Patient was seen and examined. He denied any chest pain, shortness of breath, palpitations, dizziness, or any other symptoms or complaints.
Objective Data
-
Labs:
Laboratory Results
05/12/24
06:07
WBC 6.7
Hgb 13.5
Hct 38.0 L
Plt Count 277
Sodium 134 L
Potassium 3.9
Chloride 99
Carbon Dioxide 31 H
BUN 6 L
Creatinine 0.6 L
Glucose 311 H
Calcium 9.0
Vital Signs:
Vital Signs
Temp Pulse Resp BP Pulse Ox
98.2 F 107 18 131/97 97
05/12/24 07:26 05/12/24 07:26 05/12/24 07:26 05/12/24 07:26 05/12/24 07:26
I&O
05/11/24 05/12/24 05/13/24
06:59 06:59 06:59
Intake Total 1020 / 1020
Output Total 600 / 600
Balance -600 / -600 1020 / 1020
[2024-05-12 07:47] LABS: Glucose - Point of Care 277 mg/dl (70-99)
--- NOTE | 2024-05-12 08:44 | PN.DE.MGMTRT ---
Insulin Management
- -
05/12/2024: Diabetes Management Consult
43 year old male who p/w productive coughing (dark-colored sputum), congestion, oral ulcers, diaphoresis and a rash.
PMH: GERD, HTN (untreated), anxiety/depression, solitary kidney, IDDM, long standing h/o alcohol use disorder and abuse and prescription of stimulants and opiates (Suboxone x 10 years). He reports being diagnosed with ADHD 6-7 years ago and has
been prescribed Adderall by a psychiatrist in [place] and also has been given Strattera in rehab which he finds effective and well-tolerated. He has been abusing methamphetamine on the street in lieu of Adderall, but developed an amphetamine
psychosis with hallucinations recently. He has been in six rehabs since he and 1 yr. 9 mos. ago after being sober for 4 years and attending AA. Was drinking 1.5 L of Vodka Q2 days, but since leaving rehab in February has been drinking
about a pint a day. He also uses cannabis. 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 He denies intentionally using Fentayl which was + in his drug screen.
Pt awake, alert, oriented, sitting up in chair, offers no complaints, able to discuss diabetes care plan. He is asking why he has not received his metformin since admission. Pt states that he run out of insulin and did not call his PCP for refill.
He states that he can afford his meds including insulin and has no financial challenges at this time. He sees his PCP for routine diabetes care and uses a CGM- Sebas 3 for glucose monitoring at home. States he take Lantus 25 units in AM and NovoLog
SS with meals. A1C 10.4%, Cr 0.6, eGFR >60. He would like his Lantus schedule adjusted to AM.
His glucose remains elevated, Premeal 269 to 321, requiring 5-9 units of corrective insulin with meals. FBG 311 this AM.
Current diabetes regimen includes Lantus 22 units @HS and NovoLog 10 units AC.
Will switch Lantus to AM schedule. Give 25 units daily, 1st dose NOW. Increase NovoLog to 15 units AC, cont low corrective with meals.
Diabetes History
- -
Type of Diabetes: 2 requiring insulin
Pre-Admission Diabetes Regimen
05/12/24
06:07
Creatinine 0.6 L
Lab Results
Hemoglobin A1c 10.4 % (4.0-5.6) H 05/09/24 06:29
Insulin Pump Settings
IP Diabetes Regimen
05/11/24 05/11/24 05/11/24
11:36 15:58 21:52
Glucose
POC Glucose 319 H 321 H 165 H
05/12/24 05/12/24
06:07 07:46
Glucose 311 H
POC Glucose 277 H
Meal type: Dinner
Meal type: Lunch
Meal type: Breakfast
Amount consumed: 100%
Amount consumed: 100%
Amount consumed: 100%
Patient Education
[2024-05-12] MEDS: NICODERM TRANSDERMAL 14 MG TRANSDERM (08:57)
[2024-05-12] MEDS: MIRALAX 17 GRAMS PO (08:57)
[2024-05-12] MEDS: NOVOLOG FLEXPEN 10 UNITS SC (08:58)
[2024-05-12] MEDS: OMNICEF 300 MG PO (08:58)
[2024-05-12] MEDS: SENOKOT-S 1 TABLET PO (08:58)
[2024-05-12] MEDS: PROZAC 20 MG PO (08:58)
[2024-05-12] MEDS: ZITHROMAX 500 MG PO (08:58)
[2024-05-12] MEDS: NOVOLOG FLEXPEN-MODERATE RESISTANCE 5 UNITS SC (08:59)
[2024-05-12] MEDS: LOPRESSOR 25 MG PO (09:01)
[2024-05-12] MEDS: LOPRESSOR PO (09:10)
[2024-05-12 10:48] VITALS: BP 136/101
[2024-05-12 11:20] VITALS: BP 126/93
[2024-05-12] MEDS: LANTUS SC (11:21)
[2024-05-12 12:07] LABS: Glucose - Point of Care 325 mg/dl (70-99)
[2024-05-12] MEDS: LANTUS 0.25 UNITS SC (12:10)
[2024-05-12] MEDS: NOVOLOG FLEXPEN 15 UNITS SC (12:11)
[2024-05-12] MEDS: NOVOLOG FLEXPEN-MODERATE RESISTANCE 7 UNITS SC (12:11)
--- NOTE | 2024-05-12 13:21 | CM ---
Received consult for ETOH resources. Met with patient who refused. He stated that he has all resources at home that have already been provided to him. He has the number for [facility]. Patient had no additional concerns.
Plan: Case management will continue to follow and assist with discharge planning. Patient would like to return home.
[2024-05-12 15:05] VITALS: BP 134/97
[2024-05-12 15:34] VITALS: BP 128/87
[2024-05-12 18:40] LABS: Hepatitis C Antibody Negative (Negative)
== END 2024-05-12 15:41 | disposition home or self-care (01) | DRG 871 ==
LOC: 3 WEST ACU 15:20
PROVIDERS: ADMITTING PHYSICIAN Internal Medicine; ATTENDING PHYSICIAN Hospitalist; CONSULT PHYSICIAN Internal Medicine Infectious Disease; CONSULT PHYSICIAN Psychiatry & Neurology Psychiatry; EMERGENCY PHYSICIAN Emergency Medicine
DX: A41.9 Sepsis, unspecified organism (principal); J18.9 Pneumonia, unspecified organism; E87.20 Acidosis, unspecified; Z79.4 Long term (current) use of insulin; F17.210 Nicotine dependence, cigarettes, uncomplicated; Z11.52 Encounter for screening for COVID-19; E11.65 Type 2 diabetes mellitus with hyperglycemia; K21.9 Gastro-esophageal reflux disease without esophagitis; I10 Essential (primary) hypertension; Z91.148 Patient's other noncompliance with medication regimen for other reason; F10.20 Alcohol dependence, uncomplicated; F15.10 Other stimulant abuse, uncomplicated; F12.10 Cannabis abuse, uncomplicated; F32.9 Major depressive disorder, single episode, unspecified; F41.1 Generalized anxiety disorder; K59.00 Constipation, unspecified; Z56.0 Unemployment, unspecified; Z80.0 Family history of malignant neoplasm of digestive organs; J40 Bronchitis, not specified as acute or chronic
CPT/HCPCS: 71045; 71275; 80048; 80053; 80306; 80307; 81003; 82010; 82947; 82962; 83036; 83605; 83735; 84145; 84443; 85025; 85027; 85379; 86765; 86803; 87040; 87070; 87389; 87449; 87502; 87633; 87811; 87899; 93005; 96360; 99291; Q9967

== ENCOUNTER 2024-08-10 13:39 | Emergency (ER) | payer OTHER, SELFPAY ==
[2024-08-10] VITALS (26 sets, daily range): BP systolic 93–138; BP diastolic 59–101; BMI 29.7
[2024-08-10 16:55] LABS: Amphetamines Negative (Negative); Barbiturates Negative (Negative); Benzodiazepines Negative (Negative); Buprenorphine Negative (Negative); Cocaine Negative (Negative); Marijuana Negative (Negative); Methadone Negative (Negative); Methamphetamines Negative (Negative); Opiates Negative (Negative); Phencyclidine Negative (Negative); Tricyclic Antidepressants Negative (Negative)
[2024-08-10 18:48] LABS: Fentanyl, Urine Positive (Negative)
--- NOTE | 2024-08-10 19:16 | ED.GENMED ---
History of Present Illness
General
Chief Complaint: Overdose Unintentional
Source: patient and ambulance crew
Exam Limitations: none
Time Seen by Provider: 08/10/24 13:52
Nursing documentation reviewed up to this point in time: agreed with
History of Present Illness
History of Present Illness:
Patient to ED after drug overdose. He was released for rehab today to [facility]. 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 initially stated he didnt know what was in it but smoked it anyway. FOund
unresponsive by friend who initiated CPR and called 911. He was given narcan by EMS and transported to ED. On arrival he is sleeping but arousable.
Past History
Past History
ED Past Medical History: GERD, HTN (untreated ), Psychiatric (anxiety/depression) and Other (pancreatitis)
ED Past Surgical History: Orthopedic
Social History
Tobacco: Smoker
Alcohol: Occasional
Drug: Former user
Personal:
Living: with family
Employment: Employed
Family History
Family History: Other (nc)
Review of Systems
Review of Systems
Allergies reviewed?: Yes
All Other Systems: ROS reviewed and negative except as documented in HPI and ROS
Constitutional: Reports no symptoms
EENT: Reports no symptoms
Respiratory: Reports no symptoms
Cardiac: Reports no symptoms
ABD/GI: Reports no symptoms
: Reports no symptoms
Musculoskeletal: Reports no symptoms
Skin: Reports no symptoms
Neurological: Reports no symptoms
Psychiatric: Reports no symptoms
Phy Exam
General Physical Exam
General Presentation: mild distress
General age: appears stated age
General Skin: warm and dry
General Habitus: normal
General Mental: other (sleeping but arousable)
General Hydration: appears well hydrated
Cardiovascular Exam
Cardiovascular Exam: regular rate/rhythm and no edema
Pulmonary Exam
Pulmonary Exam: no respiratory distress and chest non tender
Neurological Exam
Neurological Exam: oriented x3, no motor deficits, no sensory deficits and speech normal
Musculoskeletal Exam
Musculoskeletal Exam: full ROM and neuro vasc intact
Skin Exam
Skin Exam: normal color, warm/dry and no rash
Psychiatric Exam
Psychiatric Exam: other (sleeping but arousable, cooperative)
Course
Orders/Labs/Results
Orders:
Orders
08/10/24 16:33
Fentanyl, Urine Urgent
Urine Drug Abuse Screen Urgent
Date Specimen was Collected: 08/10/24
Time Specimen was Collected: 14:20
08/10/24 18:07
Add On- LAB Stat
Tests Added?: fentanyl
Abnormal Lab Results
08/10/24
16:33
Urine Fentanyl Screen Positive H
(Negative)
Vital Signs
Initial and Last Documented VS:
Initial Vital Signs
Pulse Resp BP Pulse Ox
79 14 138/100 96
08/10/24 13:43 08/10/24 13:43 08/10/24 13:43 08/10/24 13:43
Last Documented Vital Signs
Temp Pulse Resp BP Pulse Ox
99.1 F 61 10 113/73 96
08/10/24 13:46 08/10/24 20:00 08/10/24 20:00 08/10/24 20:00 08/10/24 20:00
*Pulse Oximetry
SaO2: 98
Oxygen Mode of Delivery: Room air
*Critical Care Note
Total Time (30-74mins, 75-104mins- exclusive of procedures): Not Applicable
Update Note
Update Note:
Patient to ED by EMS after being found unresponsive by friend. Initially he states he did not know what was in pipe but now states he knows it was fentanyl and meth. UDS +fentanyl, - meth. He would like to return to rehab. [facility] called.
Patient accepted to [facility]. Discharged to rehab transport.
ED Attending Note
-
Portions of this chart may have been created with voice recognition software.� Occasional wrong word or��sound alike� substitutions may have occurred due to the inherent limitations of voice recognition software.
Discharge Plan
Departure
Patient Disposition: Acute Rehab Facility
Date of Disposition: 08/10/24
Time of Disposition: 19:
Patient with high blood pressure during this ER visit?: No
Condition: Fair
Covid-19: Not Applicable
Discharge Problem:
Drug abuse
Prescriptions:
No Action
omeprazole 20 mg Tablet,Delayed Release (Dr/Ec)
20 mg PO DAILY
metformin 1,000 mg Tablet
1,000 mg PO BID@0800,1700 Qty: 60 0RF
insulin aspart U-100 [Novolog FlexPen U-100 Insulin] 100 unit/mL (3 mL) Insulin Pen
15 unit SC AC Qty: 5 0RF
Rx Instructions:
TAKE 10 MINUTES BEFORE EACH MEAL
insulin glargine [Lantus Solostar U-100 Insulin] 100 unit/mL (3 mL) Insulin Pen
25 unit SC DAILY Qty: 5 0RF
(DME) pen needle, diabetic [Maggi 2nd Gen Pen Needle] 32 gauge x 5/32' Needle
Qty: 200 0RF
Rx Instructions:
PATIENT TAKING INSULIN 4 TIMES A DAY
metoprolol tartrate 25 mg Tablet
25 mg PO BID Qty: 60 1RF
polyethylene glycol 3350 17 gram Powder In Packet
17 g PO DAILY Qty: 30 1RF
nicotine 14 mg/24 hr Patch 24 Hour
14 mg transdermal DAILY Qty: 14 1RF
fluoxetine 20 mg Capsule
20 mg PO DAILY Qty: 30 1RF
sennosides-docusate sodium 8.6-50 mg Tablet
1 tab PO BID Qty: 60 1RF
Referrals:
Danielle,Edu K., MD [Family Provider, Internal Medicine]
Interventions
Interventions:
*Risk Screen - Suicide Last Done: 08/10/24 13:44
*General Assessment Last Done: 08/10/24 13:44
*Neglect/Abuse Screening Last Done: 08/10/24 13:44
*ED- Fall Risk Assessment Last Done: 08/10/24 13:44
*ED COVID-19 Vaccine History Last Done: 08/10/24 13:44
*Nursing Disposition Last Done: 08/10/24 20:24
ED- Cardiac Assessment Last Done: 08/10/24 13:51
ED- Neurological Assessment Last Done: 08/10/24 13:51
ED-Psychological Assessment Last Done: 08/10/24 13:51
ED- Pulmonary Assessment Last Done: 08/10/24 13:51
Discharge Date and Time
Discharge Date/Time: 08/10/24 20:26
Print Language: [id number]
== END 2024-08-10 20:26 ==
LOC: EMR 13:39
PROVIDERS: Nurse Practitioner; EMERGENCY PHYSICIAN Emergency Medicine; FAMILY PHYSICIAN Internal Medicine
DX: F19.10 Other psychoactive substance abuse, uncomplicated (principal); I10 Essential (primary) hypertension; F17.200 Nicotine dependence, unspecified, uncomplicated
CPT/HCPCS: 99283; 80306; 80307

== ENCOUNTER 2025-01-29 16:59 | Emergency (ER) | payer OTHER, SELFPAY ==
[2025-01-29 17:19] VITALS: BP 131/81
[2025-01-29 17:42] LABS: Hematocrit 41.9 % (39.0-52.0); Hemoglobin 14.6 g/dL (13.0-18.0); Mean Corp Hgb Conc. 34.8 g/dL (33.0-37.0); Mean Corpuscular Volume 83.6 fL (80.0-94.0); Nucleated Red Blood Cells % 0 % (-); Platelet Count 344 10^3/uL (130-400); Red Cell Dist. Width 12.3 % (11.5-14.5)
[2025-01-29 17:45] LABS: Urine Character Clear (Clear)
[2025-01-29 18:02] LABS: ALT (SGPT) 13 U/L (0-50); AST (SGOT) 20 U/L (17-59); Albumin 4.6 g/dl (3.5-5.0); Alkaline Phosphatase 100 U/L (38-126); Blood Urea Nitrogen 4 mg/dl (9-20); Calcium 10.3 mg/dl (8.4-10.2); Carbon Dioxide 27 mmol/L (22-30); Chloride 99 mmol/L (98-107); Glucose 360 mg/dl (70-99); Potassium 3.9 mmol/L (3.5-5.1); Sodium 138 mmol/L (135-145); Total Protein 7.5 g/dl (6.3-8.2); eGFR > 60.00
[2025-01-29 18:07] LABS: Troponin I 0.014 ng/ml
--- NOTE | 2025-01-29 20:58 | ED.GENMED ---
History of Present Illness
General
Chief Complaint: Anxiety
Source: patient and family
Exam Limitations: none
Time Seen by Provider: 01/29/25 19:24
Nursing documentation reviewed up to this point in time: agreed with
History of Present Illness
History of Present Illness:
Patient with history of diabetes, on metformin and sliding scale insulin, and anxiety/depression, presents to ED secondary to increased left anxiety along with 'panic attack', due to lack of sleep over the past 2 days. Patient unfortunately
encountered severe upper to his right lower leg, which required hospitalization at [facility] with skin graft recently. Patient has been taking Suboxone for pain control adequately. Denies fever or chills. Denies suicidal or
homicidal ideation. Patient does admit to drinking alcohol daily. Patient also reports poor diet, which he knows that he will need to address. In addition today, patient got upset, due to some family conflict. In addition, his blood sugar has
been running high recently when checked at home, which he also understands needs to be addressed with better diet and close follow-up. When visiting nurse came to see him at home as a follow-up, he was told that his blood pressure is high, which
has been weighing on his mind. 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 Lastly, patient states he was receiving outpatient counseling/therapy for anxiety and
depression, which was discontinued over the summer, as he has been doing well. Patient has taken Ativan in the past, rarely, for anxiety.
Past History
Past History
ED Past Medical History: GERD, HTN (untreated ), Psychiatric (anxiety/depression) and Other (pancreatitis)
ED Past Surgical History: Orthopedic
Social History
Tobacco: Smoker
Alcohol: Occasional
Drug: Former user
Personal:
Living: with family
Employment: Employed
Family History
Family History: Other (nc)
Review of Systems
Review of Systems
Allergies reviewed?: Yes
All Other Systems: ROS reviewed and negative except as documented in HPI and ROS
Constitutional: Reports no symptoms
Cardiac: Reports no symptoms
ABD/GI: Reports no symptoms
Musculoskeletal: Reports no symptoms
Skin: Reports no symptoms
Neurological: Reports no symptoms
Psychiatric: Reports anxiety; Denies suicidal
Phy Exam
Physical Exam
Physical Exam:
Physical Exam
General: no apparent distress, not acutely ill. afebrile
Head: nc/at. eomi
Neck: supple. normal range of motion
Heart: s1/s2 regular rate and rhythm
Lungs: no acute respiratory distress. clear bilaterally
Abdomen: normal bowel sounds. not tender.
Neuro: alert and oriented x 3. no focal neurological deficits
Skin: no rash
Psychiatric: well kept. interactive and cooperative
Extremities: no edema. no calf tenderness.
Course
Orders/Labs/Results
Orders:
Orders
01/29/25 17:29
Electrocardiogram (*1) Urgent
Reason for Study: Chest Pain
EKG- Treatment ONCE
01/29/25 17:36
Complete Blood Count/With Diff Urgent
Comprehensive Metabolic Panel Urgent
Glycohemoglobin (HgbA1c) Urgent
Troponin I Urgent
UA [Urinalysis] Urgent
Date Specimen was Collected: 01/29/25
Time Specimen was Collected: 17:30
01/29/25 19:22
Add On- LAB Urgent
Tests Added?: hemoglobin A1C
01/29/25 20:58
Lorazepam [Ativan] 1 mg PO NOW STA
Abnormal Lab Results
01/29/25
17:36
BUN 4 L mg/dl
(9-20)
Glucose 360 H mg/dl
(70-99)
Calcium 10.3 H mg/dl
(8.4-10.2)
Urine Glucose 4+ A
(Negative)
01/29/25 17:36
01/29/25 17:36
Vital Signs
Initial and Last Documented VS:
Initial Vital Signs
Temp Pulse Resp BP Pulse Ox
98.1 F 134 20 131/81 100
01/29/25 17:19 01/29/25 17:19 01/29/25 17:19 01/29/25 17:19 01/29/25 17:19
Last Documented Vital Signs
Temp Pulse Resp BP Pulse Ox
98.1 F 98 20 128/84 100
01/29/25 17:19 01/29/25 21:30 01/29/25 17:19 01/29/25 21:30 01/29/25 21:30
MDM/Problems Addressed
MDM/Problems Addressed:
Had extensive discussion with patient and his brother, who lives with the patient, regarding his presentation, including elevated blood pressure and blood sugar. Discussed treatment options, including [place] crisis evaluation, which he
defers at this time. Patient states that he already has packet information available, that he will follow-up with as an outpatient. Patient also will take lisinopril, as already prescribed by his primary care physician, along with close outpatient
follow-up, as his blood sugar also need to be monitored carefully. Patient also understands that he must cut back on drinking alcohol eat properly. Patient otherwise is hemodynamically stable, neurologically intact, and appears comfortable, at
time of discharge, with treatment plan discussed.
Hemoglobin A1c pending.
*Pulse Oximetry
SaO2: 100
Oxygen Mode of Delivery: Room air
Patient hypoxic: no
*Critical Care Note
Total Time (30-74mins, 75-104mins- exclusive of procedures): Not Applicable
ED Attending Note
-
Portions of this chart may have been created with voice recognition software.� Occasional wrong word or��sound alike� substitutions may have occurred due to the inherent limitations of voice recognition software.
Discharge Plan
Departure
Patient Disposition: Home (Routine Discharge)
Date of Disposition: 01/29/25
Time of Disposition: 20:58
Patient with high blood pressure during this ER visit?: Yes
Discharge Problem:
Anxiety, Hypertension, Hyperglycemia
Instructions: Anxiety, Adult (DC), High blood pressure - ED (DC), High blood sugar in adults - ED (DC)
Prescriptions:
New
lorazepam [Ativan] 0.5 mg tablet
0.5 mg PO TID PRN (Reason: anxiety) Qty: 8 0RF
No Action
omeprazole 20 mg Tablet,Delayed Release (Dr/Ec)
20 mg PO DAILY
metformin 1,000 mg Tablet
1,000 mg PO BID@0800,1700 Qty: 60 0RF
insulin aspart U-100 [Novolog FlexPen U-100 Insulin] 100 unit/mL (3 mL) Insulin Pen
15 unit SC AC Qty: 5 0RF
Rx Instructions:
TAKE 10 MINUTES BEFORE EACH MEAL
insulin glargine [Lantus Solostar U-100 Insulin] 100 unit/mL (3 mL) Insulin Pen
25 unit SC DAILY Qty: 5 0RF
(DME) pen needle, diabetic [Maggi 2nd Gen Pen Needle] 32 gauge x 5/32' Needle
Qty: 200 0RF
Rx Instructions:
PATIENT TAKING INSULIN 4 TIMES A DAY
metoprolol tartrate 25 mg Tablet
25 mg PO BID Qty: 60 1RF
polyethylene glycol 3350 17 gram Powder In Packet
17 g PO DAILY Qty: 30 1RF
nicotine 14 mg/24 hr Patch 24 Hour
14 mg transdermal DAILY Qty: 14 1RF
fluoxetine 20 mg Capsule
20 mg PO DAILY Qty: 30 1RF
sennosides-docusate sodium 8.6-50 mg Tablet
1 tab PO BID Qty: 60 1RF
Referrals:
Edu Santos MD [Family Provider, Internal Medicine]
Activity Restrictions/Additional Instructions:
As discussed, please follow-up with your primary care physician for further evaluation and treatment. Recommend keeping a log of your blood pressure as well as blood sugar, to be discussed with your primary physician next week. Your prescription
has been sent electronically to [facility] pharmacy in [place].
Interventions
Interventions:
*Risk Screen - Suicide Last Done: 01/29/25 17:19
*General Assessment Last Done: 01/29/25 19:03
*Neglect/Abuse Screening Last Done: 01/29/25 17:19
[facility] Risk Assessment Tool Last Done: 01/29/25 19:03
*Nursing Disposition Last Done: 01/29/25 21:32
ED-Psychological Assessment Last Done: 01/29/25 20:00
Discharge Date and Time
Discharge Date/Time: 01/29/25 21:33
Print Language: ARMENIAN
[2025-01-29] MEDS: ATIVAN 1 MG PO (21:28)
[2025-01-29 21:30] VITALS: BP 128/84
[2025-01-30 11:05] LABS: Glycohemoglobin (HgbA1c) 7.4 % (4.0-5.9)
== END 2025-01-29 21:33 | disposition home or self-care (01) ==
LOC: EMR 16:59
PROVIDERS: Emergency Medicine; EMERGENCY PHYSICIAN Emergency Medicine; FAMILY PHYSICIAN Internal Medicine
DX: F41.9 Anxiety disorder, unspecified (principal); I10 Essential (primary) hypertension; E11.65 Type 2 diabetes mellitus with hyperglycemia; F17.200 Nicotine dependence, unspecified, uncomplicated; Z63.9 Problem related to primary support group, unspecified; Z79.84 Long term (current) use of oral hypoglycemic drugs
CPT/HCPCS: 99284; 80053; 81003; 83036; 84484; 85025; 93005